=== PATIENT | male | born 1960 | race African-American/Black ===

== ENCOUNTER → 2020-05-04 | Outpatient (CLI) | payer OTHER ==
--- NOTE | 2020-05-04 17:08 | RAD ---
INDICATION: Thyroid mass COMPARISON: None. TECHNIQUE: Grayscale and color ultrasound images obtained of the thyroid. FINDINGS: Right Lobe: 76 x 58 x 45 mm. Left Lobe: 52 x 22 x 15 mm. The right lobe of the thyroid is largely replaced by a large nodule with a solid heterogenous appearance with internal vascularity. There is a 20 x 16 mm solid heterogenous nodule within the left lobe with an adjacent subcentimeter nodule. Internal vascularity is seen. Echogenic foci within the dominant nodule in the left which can be seen with calcifications. IMPRESSION: * Bilateral solid heterogenous thyroid masses are identified with the largest mass on the right replacing the majority of the thyroid and measuring greater than 7 cm in diameter. The dominant nodule in the left also has some echogenic foci within which can be seen with calcifications. Comparison is not available for review to assess whether this is a change from the patient's prior and further workup option includes obtaining biopsy of the dominant nodules or if the patient does not want a biopsy follow-up will be needed to ensure no growth. Electronically signed by: Jose Miguel Duron MD (05/04/2020 5:05 PM) [id number]
== END ==
LOC: US 15:40
PROVIDERS: ATTEND Family Medicine
DX: E07.89 Other specified disorders of thyroid (principal); R22.1 Localized swelling, mass and lump, neck
CPT/HCPCS: 76536